=== PATIENT | female | born 1930 | race Caucasian/White ===

== ENCOUNTER 2019-12-23 06:36 | Day surgery (SDC) | payer BC ==
[2019-12-23] MEDS ORDERED: Lidocaine 1% PF 2 ML SDV INJECT ONE (06:37)
[2019-12-23] MEDS ORDERED: Propofol 200 MG/20 ML SDV IV ONE (06:37)
[2019-12-23] MEDS ORDERED: Sodium Chloride 0.9% 10 ML Syringe FLUSH PRN (06:45)
[2019-12-23] MEDS ORDERED: Lactated Ringers 1,000 ML IV SCH (06:45)
--- NOTE | 2019-12-23 07:56 | PCM.SN.2 ---
- Free Text/Narrative Note: s. pt reported that she took a nitro tablet this am for some shortness of breath on questioning by the nurse. Also despite instructions verbal and written stopped her plavix three weeks as opposed to three days ago. This did relieve the issue. She does this on rare occasion. .o Lungs clear with some decreased breath sounds in the left upper field barely noticable. heart RRR no murmurs. EKG was obtained and reviewed with the hospitalist that also happens to be her primary care provider. No marked ischemia noted. With discussion between us and the HEMATOLOGY TECHNICIAN feel it is safe to proceed with the C scope.
--- NOTE | 2019-12-23 08:37 | PCM.OPNOTE ---
- General Post-Op/Procedure Note Date of Surgery/Procedure: 12/23/19 Operative Procedure(s): c scope with biopsy Findings: scattered diverticuli descending colon polyp internal hemorrhoids Pre Op Diagnosis: hx of +FIT. lower abd pain Post-Op Diagnosis: scattered diverticulosis. descending colon polyp. internal hemorrhoids Anesthesia Technique: [facility] [place] Primary Surgeon: Deangelo Acevedo Anesthesia Provider: Shai Rios Pathology: descending colon polyp Complications: None Condition: Good Free Text/Narrative:: see dictation
--- NOTE | 2019-12-23 23:03 | OR ---
DATE OF OPERATION: 12/23/2019 SURGEON: Deangelo Acevedo MD PROCEDURE PERFORMED: Colonoscopy with cold forceps biopsy. PREOPERATIVE DIAGNOSES: History of lower abdominal pain and positive fecal immunochemical test. POSTOPERATIVE DIAGNOSES: Scattered diverticula of the colon, descending colon polyp, and internal hemorrhoids. INDICATIONS FOR PROCEDURE: This is an 89-year-old white female, who apparently had some lower abdominal pain recently, along with some constipation and was noted to have a positive FIT exam. Her symptoms resolved with MiraLAX and apple cider vinegar. However, because of the positive FIT exam, she was offered and accepted a colonoscopy. DESCRIPTION OF OPERATION: After an excellent IV sedation was administered, digital rectal exam was performed. No marked abnormality was noted. The flexible colonoscope was inserted and advanced to the cecum. The prep was excellent. The following findings were noted: Ascending colon, 1 to 2 diverticula noted. Transverse colon, unremarkable. Descending colon, a small 2 mm polyp biopsied with cold biopsy forceps and sent for permanent, occasional diverticula. Sigmoid, occasional diverticula. Rectum and anus, the patient appears to have what appears to be grade 3 hemorrhoids, at least in the left lateral position which was easily reduced. The patient tolerated the procedure well, was taken to Recovery. We will be sending her results by letter. /[id number] /NEDL
== END 2019-12-23 09:25 | disposition home or self-care (01) ==
LOC: FB.SDS 06:36
PROVIDERS: ATTEND Surgery
DX: D12.4 Benign neoplasm of descending colon (principal); K57.30 Diverticulosis of large intestine without perforation or abscess without bleeding; K64.2 Third degree hemorrhoids; I12.9 Hypertensive chronic kidney disease with stage 1 through stage 4 chronic kidney disease, or unspecified chronic kidney disease; N18.3 Chronic kidney disease, stage 3 (moderate); Z90.49 Acquired absence of other specified parts of digestive tract; Z79.899 Other long term (current) drug therapy; Z79.82 Long term (current) use of aspirin; Z88.0 Allergy status to penicillin; Z88.8 Allergy status to other drugs, medicaments and biological substances; Z91.010 Allergy to peanuts; Z91.018 Allergy to other foods
CPT/HCPCS: 88305; 93005; J2001; J2704; J7120